=== PATIENT | female | born 2000 | race Caucasian/White ===

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

== ENCOUNTER 2024-07-26 11:41 | Emergency (ER) | payer OTHER ==
[~2024-07-26] VITALS: Ht 157.5 cm; Wt 52.6 kg
[2024-07-26 11:46] VITALS: BP 102/60; O2SAT 18
[2024-07-26] MEDS ORDERED: ACETAMINOPHEN500 M1 PO (11:50)
[2024-07-26] MEDS ORDERED: PROTONIX40 MG PO (11:51)
[2024-07-26] MEDS ORDERED: ZOFRAN8 MG PO (11:51)
[2024-07-26] MEDS ORDERED: 0.9 % SODIUM CHLORIDE 1,000 ML IV STA (12:25)
[2024-07-26] MEDS ORDERED: KETOROLAC TROMETHAMINE 30 MG VIAL IV STA (12:26)
[2024-07-26] MEDS ORDERED: HALOPERIDOL LACTATE 5 MG/ML AMPUL IM STA (12:28)
[2024-07-26] MEDS ORDERED: DIPHENHYDRAMINE HCL 50 MG/ML VIAL 1ML IM STA (12:29)
[2024-07-26] MEDS ORDERED: KETOROLAC TROMETHAMINE 30 MG VIAL ONE (12:33)
[2024-07-26] MEDS ORDERED: HALOPERIDOL LACTATE 5 MG/ML AMPUL ONE (12:34)
[2024-07-26] MEDS ORDERED: DIPHENHYDRAMINE HCL 50 MG/ML VIAL 1ML ONE (12:34)
[2024-07-26 13:49] LABS: HEMATOCRIT 35.5 % (36.0-45.00); HEMOGLOBIN 11.9 g/dL (12.0-15.00); MEAN CELL VOLUME 85.9 fL (80.00-100.00); MEAN CORPUSCULAR HEMOGLOBIN 28.9 pg (27.00-32.0); MEAN CORPUSCULAR HGB CONC 33.6 g/dl (32.0-36.0); RED BLOOD COUNT 4.13 M/uL (4.00-6.00); RED CELL DISTRIBUTION WIDTH 13.5 % (11.5-14.5)
[2024-07-26 13:51] LABS: PLATELET COUNT 111 K/uL (150-450)
[2024-07-26 14:13] LABS: ALBUMIN 2.8 gm/dL (3.4-5.0); BILIRUBIN TOTAL 0.53 mg/dL (0.3-1.2); CALCIUM 8.7 mg/dL (8.5-10.1); CREATININE SERUM 0.64 mg/dL (0.55-1.02); GLOBULINA 4.2 G/DL (2.4-3.5); POTASSIUM 3.76 mEq/L (3.5-5.1)
[2024-07-26] MEDS ORDERED: FAMOTIDINE/PF 20 MG/2 ML VIAL ONE (19:22)
[2024-07-26] MEDS ORDERED: FAMOTIDINE/PF 20 MG in 0.9 % SODIUM CHLORIDE 8 ML IV PUSH STA (19:32)
[2024-07-26 21:10] LABS: URINE APPEARANCE Clear; URINE BILIRRUBIN Negative (NEGATIVE); URINE BLOOD Negative; URINE COLOR Dark Yellow; URINE GLUCOSE Negative (NEGATIVE); URINE KETONE Trace (NEGATIVE); URINE LEUKOCYTE Trace; URINE NITRATE Negative; URINE PROTEIN 30 (NEGATIVE)
[2024-07-26 21:15] LABS: URINE BACTERIA 9.7 uL (0.0-1933); URINE EPITHELIAL CELLS 4.4 uL (0.0-38.8); URINE RBC 18.7 uL (0.0-20.8); URINE WBC 2.2 uL (0.0-23.2)
[2024-07-26 21:42] LABS: HEMATOCRIT 33.5 % (36.0-45.00); HEMOGLOBIN 11.3 g/dL (12.0-15.00); MEAN CELL VOLUME 85.5 fL (80.00-100.00); MEAN CORPUSCULAR HEMOGLOBIN 28.8 pg (27.00-32.0); MEAN CORPUSCULAR HGB CONC 33.7 g/dl (32.0-36.0); RED BLOOD COUNT 3.92 M/uL (4.00-6.00); RED CELL DISTRIBUTION WIDTH 13.6 % (11.5-14.5)
[2024-07-26 21:43] LABS: PLATELET COUNT 104 K/uL (150-450)
== END 2024-07-26 22:31 | disposition home or self-care (01) ==
LOC: ER 11:41
PROVIDERS: General Practice
DX: B34.9 Viral infection, unspecified (principal)

== ENCOUNTER 2024-07-27 17:16 | Inpatient (IN) | payer OTHER ==
[~2024-07-27] VITALS: Ht 157.5 cm; Wt 53.1 kg
[~2024-07-27 17:16] MED LIST: ACETAMINOPHEN500 M1 PO; PROTONIX40 MG PO; ZOFRAN8 MG PO
[2024-07-27] MEDS ORDERED: 0.9 % SODIUM CHLORIDE 1,000 ML IV SCH ×2 (19:00→23:30)
--- NOTE | 2024-07-27 19:03 | NUR ---
SE RECIBE PACIENTE ALERTA Y ORIENTADA REFIERE VENIR POR RETENCION DE ORINA DESDE LA NOCHE ANTERIOR.
[2024-07-27 19:59] LABS: HEMATOCRIT 34.1 % (36.0-45.00); HEMOGLOBIN 11.6 g/dL (12.0-15.00); MEAN CELL VOLUME 83.1 fL (80.00-100.00); MEAN CORPUSCULAR HEMOGLOBIN 28.3 pg (27.00-32.0); MEAN CORPUSCULAR HGB CONC 34.1 g/dl (32.0-36.0); RED CELL DISTRIBUTION WIDTH 13.9 % (11.5-14.5)
[2024-07-27 20:05] LABS: PLATELET COUNT 117 K/uL (150-450)
--- NOTE | 2024-07-27 20:21 | NUR ---
SE EDUCA A PACIENTE SOBRE TRATAMIENTO MEDICO EL CUAL REFIERE ENTENDER, SE REALIZA NASIMA DE MUESTRAS BAJO MEDIDAS ASEPTICAS Y JORGE ORDEN MEDICA. AL MOMENTO SE ADMINISTRA MEDICAMENTO BAJO MEDIDA ASEPTICA Y SE INSERTA SONDA URINARIA BAJO MEDIDAS ESTERILES Y ASEPTICAS.
[2024-07-27 20:24] LABS: ALBUMIN 2.7 gm/dL (3.4-5.0); BILIRUBIN TOTAL 0.44 mg/dL (0.3-1.2); CALCIUM 8.2 mg/dL (8.5-10.1); CREATININE SERUM 0.65 mg/dL (0.55-1.02); GFR 111.98; POTASSIUM 3.57 mEq/L (3.5-5.1); TOTAL PROTEIN 6.7 gm/dL (6.4-8.2)
[2024-07-27 20:41] LABS: PH,URINE 6.5 (5.0-8.0); URINE APPEARANCE Clear; URINE BILIRRUBIN Negative (NEGATIVE); URINE BLOOD Negative; URINE COLOR Dark Yellow; URINE GLUCOSE Negative (NEGATIVE); URINE KETONE Trace (NEGATIVE); URINE LEUKOCYTE Trace; URINE NITRATE Negative; URINE PROTEIN 30 (NEGATIVE)
[2024-07-27 20:44] LABS: URINE BACTERIA 248.4 uL (0.0-1933); URINE EPITHELIAL CELLS 24.6 uL (0.0-38.8); URINE RBC 31.5 uL (0.0-20.8); URINE WBC 19.1 uL (0.0-23.2)
[2024-07-27] MEDS ORDERED: PANTOPRAZOLE SODIUM 40 MG/VIAL VIAL IV SCH (23:27)
[2024-07-27] MEDS ORDERED: CEFTRIAXONE SODIUM 2,000 MG in 0.9 % SODIUM CHLORIDE 100 ML IV SCH (23:27)
[2024-07-27] MEDS ORDERED: PROMETHAZINE HCL 25 MG/ML AMPUL IM ONE (23:30)
[2024-07-27] MEDS ORDERED: ONDANSETRON HCL 4 MG in 0.9 % SODIUM CHLORIDE 50 ML IV PRN (23:30)
[2024-07-27] MEDS ORDERED: ACETAMINOPHEN 500 MG GEL..CAP PO ONE ×2 (23:30→23:36)
[2024-07-27] MEDS ORDERED: ACETAMINOPHEN 500 MG GEL..CAP PO PRN (23:30)
[2024-07-27] MEDS ORDERED: CEFTRIAXONE SODIUM 2,000 MG VIAL ONE (23:36)
[2024-07-27] MEDS ORDERED: PROMETHAZINE HCL 50 MG/ML AMPUL IM ONE (23:36)
[2024-07-27] MEDS ORDERED: METRONIDAZOLE/SODIUM CHLORIDE 500 MG/100 ML PIGGYBACK IV ONE (23:37)
[2024-07-28] VITALS: BP 124/72; O2SAT 95
[2024-07-28] MEDS ORDERED: IPRATROPIUM BROMIDE 0.5 MG/2.5 ML AMPUL.NEB IH SCH (01:00)
[2024-07-28] MEDS ORDERED: METRONIDAZOLE/SODIUM CHLORIDE 100 ML IV SCH (01:00)
[2024-07-28 03:33] VITALS: BP 123/84; O2SAT 97
[2024-07-28 04:03] LABS: COVID-19 AG NEGATIVE (NEGATIVE)
[2024-07-28 04:06] LABS: ERYTHROCYTE SEDIMENTATION RATE 12 mm/hr; PLT IN CITRATE 95 K/uL (150-450)
[2024-07-28 04:22] LABS: MAGNESIUM 1.5 mg/dL (1.8-2.4); PHOSPHOROUS 2.5 mg/dL (2.5-4.9)
[2024-07-28 04:24] LABS: HEMATOCRIT 34.3 % (36.0-45.00); MEAN CELL VOLUME 82.9 fL (80.00-100.00); PLATELET COUNT 125 K/uL (150-450); RED BLOOD COUNT 4.14 M/uL (4.00-6.00); RED CELL DISTRIBUTION WIDTH 13.8 % (11.5-14.5)
[2024-07-28 04:26] LABS: C-REACTIVE PROTEIN 0.57 MG/DL (0.00-0.29)
[2024-07-28 04:30] VITALS: BP 125/80; O2SAT 99
[2024-07-28 04:31] LABS: INR 1.01; PARTIAL THROMBOPLASTIN TIME 29.9 SECONDS (22.0-34.0)
[2024-07-28 17:01] VITALS: BP 107/73; BP 146/77; O2SAT 95; O2SAT 98
[2024-07-28] MEDS ORDERED: MINERAL OIL 30 ML BLIST.PACK PO STA (18:53)
[2024-07-28] MEDS ORDERED: LACTULOSE 20 G/30 ML BLIST.PACK PO STA (18:54)
[2024-07-28] MEDS ORDERED: MAGNESIUM HYDROXIDE 30 ML BLIST.PACK PO STA (19:06)
[2024-07-29 00:43] VITALS: BP 106/69; O2SAT 96
[2024-07-29 08:00] VITALS: BP 107/74; O2SAT 100
[2024-07-29] MEDS ORDERED: TAMSULOSIN HCL 0.4 MG CAP PO SCH (09:00)
[2024-07-29 16:00] VITALS: BP 117/76; O2SAT 96
[2024-07-29] MEDS ORDERED: HYDROCORTISONE 0.5% TOP PRN (18:15)
[2024-07-30 00:29] VITALS: BP 106/67; O2SAT 98
[2024-07-30 08:00] VITALS: BP 111/71; O2SAT 97
[2024-07-30 15:24] LABS: PH,URINE 7.5 (5.0-8.0); URINE APPEARANCE Clear; URINE BILIRRUBIN Negative (NEGATIVE); URINE BLOOD Negative; URINE COLOR Yellow; URINE GLUCOSE Negative (NEGATIVE); URINE KETONE Negative (NEGATIVE); URINE LEUKOCYTE Negative; URINE NITRATE Negative; URINE PROTEIN Negative (NEGATIVE); URINE UROBILINOGEN 0.2 E.U./dl
[2024-07-30 15:29] LABS: URINE BACTERIA 20.7 uL (0.0-1933); URINE EPITHELIAL CELLS 5.3 uL (0.0-38.8); URINE RBC 5.8 uL (0.0-20.8)
[2024-07-30 15:36] LABS: URINE WBC 1.7 uL (0.0-23.2)
[2024-07-30 15:43] LABS: HEMATOCRIT 34.2 % (36.0-45.00); HEMOGLOBIN 11.5 g/dL (12.0-15.00); MEAN CORPUSCULAR HEMOGLOBIN 28.2 pg (27.00-32.0); MEAN CORPUSCULAR HGB CONC 33.5 g/dl (32.0-36.0); PLATELET COUNT 175 K/uL (150-450); RED BLOOD COUNT 4.07 M/uL (4.00-6.00); RED CELL DISTRIBUTION WIDTH 13.6 % (11.5-14.5)
[2024-07-30 15:50] LABS: ALBUMIN 2.6 gm/dL (3.4-5.0); BILIRUBIN TOTAL 0.46 mg/dL (0.3-1.2); CALCIUM 8.5 mg/dL (8.5-10.1); CREATININE SERUM 0.46 mg/dL (0.55-1.02); GFR 166.89; GLOBULINA 3.4 G/DL (2.4-3.5); POTASSIUM 3.44 mEq/L (3.5-5.1)
[2024-07-30 16:44] VITALS: BP 111/74; O2SAT 98
[2024-07-31 00:35] VITALS: BP 113/73; O2SAT 97
[2024-07-31 08:24] VITALS: BP 114/76; O2SAT 97
== END 2024-07-31 11:23 | disposition home or self-care (01) | DRG 866 ==
LOC: ER 17:16 → SEC-K 07-28 00:02 → SURH 07-28 00:02 → MEDJ 07-28 02:30 → SURH 07-28 03:31
PROVIDERS: General Practice; Internal Medicine Infectious Disease; ADMIT Student in an Organized Health Care Education/Training Program; ATTEND Student in an Organized Health Care Education/Training Program
PROC: BW21ZZZ Computerized Tomography (CT Scan) of Abdomen and Pelvis (ICD-10-PCS; principal; 2024-07-27)
PROC: BW40ZZZ Ultrasonography of Abdomen (ICD-10-PCS; 2024-07-28)
PROC: B030YZZ Magnetic Resonance Imaging (MRI) of Brain using Other Contrast (ICD-10-PCS; 2024-07-29)
DX: A90 Dengue fever [classical dengue] (principal); N39.0 Urinary tract infection, site not specified; K81.0 Acute cholecystitis; J90 Pleural effusion, not elsewhere classified; M34.89 Other systemic sclerosis; D69.6 Thrombocytopenia, unspecified; N31.9 Neuromuscular dysfunction of bladder, unspecified; H81.4 Vertigo of central origin; M06.9 Rheumatoid arthritis, unspecified
CPT/HCPCS: 70552

== ENCOUNTER 2024-08-03 09:00 | Outpatient (CLI) | payer OTHER | END 2024-08-03 09:11 | disposition home or self-care (01) | LOC: MRI 09:00 | DX: R33.9 Retention of urine, unspecified (principal) | CPT/HCPCS: 72157; 72158 ==

== ENCOUNTER 2024-08-07 12:19 | Outpatient (CLI) | payer OTHER ==
[2024-08-07 13:31] LABS: HEMATOCRIT 33.9 % (36.0-45.00); HEMOGLOBIN 11.8 g/dL (12.0-15.00); MEAN CELL VOLUME 83.9 fL (80.00-100.00); MEAN CORPUSCULAR HEMOGLOBIN 29.1 pg (27.00-32.0); MEAN CORPUSCULAR HGB CONC 34.7 g/dl (32.0-36.0); PLATELET COUNT 270 K/uL (150-450); RED BLOOD COUNT 4.04 M/uL (4.00-6.00); RED CELL DISTRIBUTION WIDTH 13.9 % (11.5-14.5)
== END 2024-08-07 12:25 | disposition home or self-care (01) ==
LOC: LAB 12:19
PROVIDERS: ATTEND Internal Medicine
DX: B97.89 Other viral agents as the cause of diseases classified elsewhere (principal); Z01.810 Encounter for preprocedural cardiovascular examination; E03.9 Hypothyroidism, unspecified; G62.9 Polyneuropathy, unspecified; A90 Dengue fever [classical dengue]

== ENCOUNTER 2024-11-10 23:05 | Emergency (ER) | payer OTHER ==
[~2024-11-10] VITALS: Ht 154.9 cm; Wt 51.3 kg
[2024-11-11] MEDS ORDERED: 0.9 % SODIUM CHLORIDE 1,000 ML IV STA (01:47)
[2024-11-11] MEDS ORDERED: DEXAMETHASONE SODIUM PHOSPHATE 4 MG/ML VIAL IV STA (01:49)
[2024-11-11] MEDS ORDERED: DEXAMETHASONE SODIUM PHOSPHATE 4 MG/ML VIAL ONE (01:56)
[2024-11-11 02:14] LABS: BASO % 0.2 % (0.1-1.2); EOS # 0.01 (0.04-0.54); EOS % 0.2 % (0.7-7.0); LYMPH # 0.85 (1.18-3.74); LYMPH % 17.1 % (19.3-53.1); MEAN PLATELET VOLUME 10.60 fl (9.4-12.4); MONO # 0.43 (0.24-0.82); MONO % 8.6 % (4.7-12.5); NEUT # 3.63 (1.56-6.13); NEUT % 72.9 % (34.0-71.1); RED CELL DISTRIBUTION WIDTH 14.4 % (11.6-14.4)
[2024-11-11 02:29] LABS: LYMPHOCYTE MAN 20.0 %; MONOCYTE MAN 5.0 %; NEUTROPHILS MAN 74.0 %
[2024-11-11 02:30] LABS: ERYTHROCYTE SEDIMENTATION RATE 33 mm/hr (0-20)
[2024-11-11 02:34] LABS: ALT/SGPT 152.0 U/L (12-78); AST/SGOT 222.0 U/L (15-37); BILIRUBIN TOTAL 0.44 mg/dL (0.3-1.2); BILIRUBIN,CONJUGATED 0.15 mg/dL (0.0-0.2); BUN CREA RATIO 22.0 (7.0-25.0); CREATININE SERUM 0.45 mg/dL (0.55-1.02); GFR 169.76; GLOBULINA 4.0 G/DL (2.4-3.5); GLUCOSE FASTING 103.0 mg/dL (65-100); OSMOLALITY SERUM 269.0 MOSM/KG (275-295)
[2024-11-11 03:35] LABS: URINE APPEARANCE Clear; URINE BILIRRUBIN Negative (NEGATIVE); URINE BLOOD Moderate; URINE COLOR Yellow; URINE GLUCOSE Negative (NEGATIVE); URINE KETONE Negative (NEGATIVE); URINE LEUKOCYTE Negative; URINE NITRATE Negative; URINE PROTEIN 30 (NEGATIVE); URINE UROBILINOGEN 1.0 E.U./dl
[2024-11-11 03:39] LABS: URINE BACTERIA 350.3 uL (0.0-1933); URINE EPITHELIAL CELLS 37.8 uL (0.0-38.8); URINE RBC 21.1 uL (0.0-20.8); URINE WBC 6.1 uL (0.0-23.2)
[2024-11-11 03:47] LABS: URINE CAST 0.00 uL (0.0-1.40)
[2024-11-11 03:52] LABS: COVID-19 AG NEGATIVE (NEGATIVE)
== END 2024-11-11 14:02 | disposition home or self-care (01) ==
LOC: ER 23:05
DX: B34.9 Viral infection, unspecified (principal); A90 Dengue fever [classical dengue]; R16.0 Hepatomegaly, not elsewhere classified; Z20.822 Contact with and (suspected) exposure to COVID-19; Z88.8 Allergy status to other drugs, medicaments and biological substances